=== PATIENT | female | born 1980 | race Caucasian/White ===

== ENCOUNTER → 2016-08-20 | Outpatient (CLI) | payer MEDICAID ==
--- NOTE | ~2016-08-20 | US98 ---
[facility] A Service of [facility] & [facility] RADIOLOGY TEXT RESULTS PATIENT: STEFFEN SOMMER LOCATION: [facility] : [birth year] UNIT #: [id number] AGE: [address]: ESAU TIRADO APRN SEX: F ORDER DR: [id number] [facility] [address] [place], [place] [address] [id number] O MR#: [id number] Acc #: [id number] NAME: STEFFEN SOMMER : 1980 SEX: F STUDY DATE/TIME: 08/20/2016 13:30 UNIT: [facility] ROOM: STUDY DESCRIPTION: US Pelvic Non-OB Complete Attending Physician: Esau Tirado Referring Physician: Esau Tirado Ordering Physician: Andrea Tirado M.D. Primary Care Physician: Esau Tirado MEDICAL IMAGING REPORT This report is preliminary unless electronic signature is present EXAM Pelvic ultrasound transabdominal and transvaginal technique 08/20/2016. INDICATION A 36-year-old female complaining of pelvic pain bilaterally for the past 2 months. No bleeding or prior surgeries. TECHNIQUE Sonographic imaging of the pelvis was performed transabdominally and then transvaginally for better evaluation of the adnexa and ovarian structures. We have no comparisons. FINDINGS Transabdominal imaging: The uterus measures about 5.8 x 5.4 x 10 cm and is better characterized transvaginally. Neither ovary is seen transabdominally. Transvaginal imaging: The uterus is retroverted. Small nabothian cysts are present in the cervix. The uterus measures about 8.1 x 5.5 x 3.8 cm. Endometrial stripe measures approximately 4 mm, within normal range. Trace amount of free fluid in the pelvic cul-de-sac. The right ovary measures up to 3 cm and demonstrates good flow and small follicles. The left ovary measures up to 2.5 cm also demonstrates good flow and small follicles. No adnexal mass or drainable fluid collection. IMPRESSION 1. Retroverted uterus which is otherwise unremarkable. 2. Ovaries appear within normal limits. Dictated by... [facility]. [facility] A Service of [facility] & [facility] RADIOLOGY TEXT RESULTS PATIENT: STEFFEN SOMMER LOCATION: [facility] #: [id number] : [birth year] UNIT #: [id number] AGE: [address]: ESAU TIRADO MEDICAL OFFICE TECHNOLOGY INSTRUCTOR SEX: F ORDER DR: Fermin James M.D. THIS IS AN ELECTRONICALLY VERIFIED REPORT Fermin James M.D. at 08/21/2016 2:16 PM Lars TD: 08/20/2016 21:14 JOB #: [id number] MEDICAL IMAGING REPORT Page 1 of 1 COPY
== END | disposition home or self-care (01) ==
LOC: CGUS 13:08
DX: R10.2 Pelvic and perineal pain (principal); N85.4 Malposition of uterus
CPT/HCPCS: 76830; 76856